=== PATIENT | male | born 2000 | race Caucasian/White ===

== ENCOUNTER 2023-01-15 14:19 | Emergency (ER) | payer OTHER ==
[~2023-01-15] VITALS: Ht 180.3 cm; Wt 69.9 kg
[2023-01-15 14:41] VITALS: BP 123/71; PULSE 72; RESP 18; TEMP 98.1; O2SAT 100
[2023-01-15] MEDS ORDERED: ACETAMINOPHEN EXTRA STRENGTH 500 MG TAB PO ONE (15:00)
[2023-01-15] MEDS ORDERED: ONDANSETRON 4 MG ODT PO ONE (15:00)
[2023-01-15] MEDS ORDERED: ONDA-188 SL (16:01)
[2023-01-15] MEDS ORDERED: ACET-10509 PO (16:01)
[2023-01-15] MEDS ORDERED: ONDANSETRON 4 MG ODT ONE (16:02)
[2023-01-15] MEDS ORDERED: ACETAMINOPHEN EXTRA STRENGTH 500 MG TAB ONE (16:03)
== END 2023-01-15 16:22 | disposition home or self-care (01) ==
LOC: MED 14:19
DX: S02.2XXA Fracture of nasal bones, initial encounter for closed fracture (principal); S06.0X1A Concussion with loss of consciousness of 30 minutes or less, initial encounter; Z79.899 Other long term (current) drug therapy; W50.0XXA Accidental hit or strike by another person, initial encounter; Y93.66 Activity, soccer; Y92.89 Other specified places as the place of occurrence of the external cause; Y99.8 Other external cause status
CPT/HCPCS: 70450; 70486; 99284; Q0162